=== PATIENT | male | born 1985 | race Hispanic/Latino ===

== ENCOUNTER 2021-06-05 19:24 | Emergency (ER) | payer SELFPAY ==
[~2021-06-05] VITALS: Ht 182.9 cm; Wt 79.4 kg
[2021-06-05 20:29] VITALS: BP 142/82
== END 2021-06-05 20:29 | disposition home or self-care (01) ==
LOC: FSED 19:34
DX: K62.5 Hemorrhage of anus and rectum (principal); K64.9 Unspecified hemorrhoids
CPT/HCPCS: 99282

== ENCOUNTER 2021-06-16 08:34 | Emergency (ER) | payer SELFPAY ==
[~2021-06-16] VITALS: Ht 182.9 cm; Wt 79.5 kg
[2021-06-16] MEDS ORDERED: SODIUM CHLORIDE 0.9% 50ML 50 ML ONE (10:27)
[2021-06-16] MEDS ORDERED: IOPAMIDOL 370 MG/ML 200 ML INFUS..BTL INJ ONE (10:28)
== END 2021-06-16 11:30 | disposition home or self-care (01) ==
LOC: FSED 08:45
DX: K64.4 Residual hemorrhoidal skin tags (principal); K62.5 Hemorrhage of anus and rectum
CPT/HCPCS: 74177; 80053; 81003; 85025; 99284; Q9967